=== PATIENT | female | born 1980 | race Two or more races ===

== ENCOUNTER 2022-08-20 07:07 | Outpatient (CLI) | payer OTHER | END 2022-08-20 07:08 | disposition home or self-care (01) | LOC: LAB 07:07 | PROVIDERS: ATTEND Internal Medicine Hematology & Oncology | DX: D50.8 Other iron deficiency anemias (principal); I10 Essential (primary) hypertension; R74.02 Elevation of levels of lactic acid dehydrogenase [LDH]; K76.89 Other specified diseases of liver; R79.9 Abnormal finding of blood chemistry, unspecified; D63.8 Anemia in other chronic diseases classified elsewhere; D51.1 Vitamin B12 deficiency anemia due to selective vitamin B12 malabsorption with proteinuria; D51.0 Vitamin B12 deficiency anemia due to intrinsic factor deficiency; D63.1 Anemia in chronic kidney disease; E03.8 Other specified hypothyroidism; E06.3 Autoimmune thyroiditis; D55.0 Anemia due to glucose-6-phosphate dehydrogenase [G6PD] deficiency; C56.9 Malignant neoplasm of unspecified ovary; R97.0 Elevated carcinoembryonic antigen [CEA]; R97.8 Other abnormal tumor markers; R97.1 Elevated cancer antigen 125 [CA 125]; D68.8 Other specified coagulation defects; D69.1 Qualitative platelet defects ==

== ENCOUNTER 2022-10-19 10:06 | Outpatient (CLI) | payer OTHER | END 2022-10-19 10:07 | disposition home or self-care (01) | LOC: LAB 10:06 | PROVIDERS: ATTEND Internal Medicine Hematology & Oncology | DX: D50.8 Other iron deficiency anemias (principal); R79.9 Abnormal finding of blood chemistry, unspecified; I10 Essential (primary) hypertension; R74.02 Elevation of levels of lactic acid dehydrogenase [LDH]; K76.89 Other specified diseases of liver; D51.1 Vitamin B12 deficiency anemia due to selective vitamin B12 malabsorption with proteinuria; R91.1 Solitary pulmonary nodule; D25.9 Leiomyoma of uterus, unspecified ==

== ENCOUNTER 2022-10-19 10:50 | Outpatient (CLI) | payer OTHER | END 2022-10-19 10:52 | disposition home or self-care (01) | LOC: TOM 10:50 | PROVIDERS: ATTEND Internal Medicine Hematology & Oncology | DX: D50.8 Other iron deficiency anemias (principal); D51.1 Vitamin B12 deficiency anemia due to selective vitamin B12 malabsorption with proteinuria; R91.1 Solitary pulmonary nodule; D25.9 Leiomyoma of uterus, unspecified | CPT/HCPCS: 71260; Q9965 ==

== ENCOUNTER 2023-12-09 08:04 | Outpatient (CLI) | payer OTHER ==
[2023-12-09 11:08] LABS: HEMATOCRIT 37.3 % (36.0-45.00); HEMOGLOBIN 12.2 g/dL (12.0-15.00); MEAN CELL VOLUME 83.8 fL (80.00-100.00); MEAN CORPUSCULAR HEMOGLOBIN 27.4 pg (27.00-32.0); MEAN CORPUSCULAR HGB CONC 32.7 g/dl (32.0-36.0); PLATELET COUNT 212 K/uL (150-450); RED BLOOD COUNT 4.45 M/uL (4.00-6.00)
[2023-12-09 11:24] LABS: RED CELL DISTRIBUTION WIDTH 21.6 % (11.5-14.5)
[2023-12-09 11:26] LABS: % SATURACION 37.5 % (15-50); ALBUMIN 4.1 gm/dL (3.4-5.0); BILIRUBIN TOTAL 0.44 mg/dL (0.3-1.2); CALCIUM 9.3 mg/dL (8.5-10.1); CREATININE SERUM 0.66 mg/dL (0.55-1.02); FERRITIN 17.4 NG/ML (8-252); GFR 99.19; GLOBULINA 3.7 G/DL (2.4-3.5); POTASSIUM 4.2 mEq/L (3.5-5.1); TOTAL PROTEIN 7.8 gm/dL (6.4-8.2)
[2023-12-10 15:09] LABS: FOLIC ACID > 20.00 ng/ml (4.78-20)
[2023-12-12 09:08] LABS: CA 125 14.7 U/mL (0.0-38.1)
[2023-12-13 12:17] LABS: MANUAL PLATELET COUNT 280
[2023-12-13 12:39] LABS: PLATELET ESTIMATE NORMAL (NORMAL)
[2023-12-13 13:07] LABS: PARIETAL CELL ANTIBODIES 32.9 Units (0.0-20.0)
[2023-12-13 17:06] LABS: INTRINSIC FACTOR BLOCKING AB 1.1 AU/mL (0.0-1.1)
== END 2023-12-09 08:06 | disposition home or self-care (01) ==
LOC: LAB 08:04
PROVIDERS: ATTEND Internal Medicine Hematology & Oncology
DX: D50.8 Other iron deficiency anemias (principal); R79.9 Abnormal finding of blood chemistry, unspecified; R74.02 Elevation of levels of lactic acid dehydrogenase [LDH]; K76.89 Other specified diseases of liver; I10 Essential (primary) hypertension; E11.9 Type 2 diabetes mellitus without complications; D51.1 Vitamin B12 deficiency anemia due to selective vitamin B12 malabsorption with proteinuria

== ENCOUNTER 2024-11-18 05:43 | Day surgery (SDC) | payer OTHER ==
[2024-11-14 14:43] VITALS: BP 114/81
[~2024-11-18] VITALS: Ht 157.5 cm; Wt 59.0 kg
[~2024-11-18 05:43] MED LIST: FUSION PLUS CA1 EACH PO; IRON236 MG PO
[2024-11-18] MEDS ORDERED: POVIDONE-IODINE 118 ML BOTT TOP ONE (10:25)
[2024-11-18] MEDS ORDERED: KETOROLAC TROMETHAMINE 30 MG VIAL IV ONE (11:15)
[2024-11-18] MEDS ORDERED: ONDANSETRON HCL 2 MG/ML VIAL IV ONE (11:15)
[2024-11-18] MEDS ORDERED: KETOROLAC TROMETHAMINE 30 MG VIAL ONE (13:52)
== END 2024-11-18 16:35 | disposition home or self-care (01) ==
LOC: CIR.AMB 05:43
PROVIDERS: ATTEND Obstetrics & Gynecology
DX: N84.0 Polyp of corpus uteri (principal); N93.8 Other specified abnormal uterine and vaginal bleeding